=== PATIENT | male | born 1990 | race Caucasian/White ===

== ENCOUNTER 2019-10-17 11:21 | Emergency (ER) | payer OTHER, SELFPAY ==
[2019-10-17 11:27] VITALS: BP 153/71; PULSE 86; RESP 18; TEMP 36.8; O2SAT 98
--- NOTE | 2019-10-17 11:46 | ED.GENADULT ---
HPI - General Adult General Chief complaint: Upper Respiratory Infection Stated complaint: sore throat and headache Time Seen by Provider: 10/17/19 11:46 Source: patient and RN notes reviewed Mode of arrival: ambulatory Limitations: no limitations History of Present Illness HPI narrative: 29-year-old male presents with complaints of sore throat, bilateral ear pain, fever, and intermittent headache (not the worst of his life) for the past 2-3 days. OTC medication (last on 10/16/19 @ 20:30) with some relief. Low grade fever of 100.2F, orally without chills. No high fevers, drooling, neck or throat swelling. Pain is bilateral. Hurts to swallow. Exacerbation factors consist of eating and drinking. No rhinorrhea or nasal congestion. No voice change. No diarrhea, nausea, vomiting, or abdominal pain. Tolerating liquids well. Denies chills, dyspnea, difficulty swallowing, jaw pain, dental pain, facial pain, foreign body sensation, and rash. Remains active. The patient reports they have not been diagnosed with COVID-19. The patient reports they are not waiting for the results of a COVID-19 lab test. The patient reports they do not have fever, chills, weakness, fatigue, myalgia, or facial swelling. The patient reports they do not have a new or worsening cough or shortness of breath. Denies chest pain. The patient reports they do not have any rhinorrhea, congestion, sore throat, nausea, vomiting, abdominal pain, and diarrhea. Tolerating po intake well. Denies recent traveling. Denies concerns for COVID-19 or exposures been home since [id number] order except for essential household needs, working, and return home. At this time, patient is not suspected of having COVID-19. Complaints of intermittent chest pain for the past 8-9 months. Random pinching feeling. No treatment. No exacerbating factors. Denies diaphoresis or radiating pain. Maternal grandfather history of [place] X4 otherwise no other family history of heart disease and no family history of sudden . Denies fever or chills. Denies nausea, vomiting, diarrhea, or abdominal pain. Denies leg swelling, long car rides, hisorty of DVT, PE, LE edema, or dizziness. Some parts of this dictation were generated by voice recognition software and may contain typographical and/or grammatical inaccuracies. Related Data Allergies Allergy/AdvReac Type Severity Reaction Status Date / Time No Known Allergies Allergy Verified 10/17/19 11:39 Review of Systems Review of Systems: Narrative: CONSTITUTIONAL: Denies fever, chills, sweats. EYES: Denies visual changes, redness, discharge. ENT: Denies rhinorrhea, congestion. Complains of bilateral otalgia, sore throat. CARDIOVASCULAR: Denies palpitations, edema. Complains of intermittent chest pain. RESPIRATORY: Denies dyspnea, wheezing. Complains of cough. GASTROINTESTINAL: Denies abdominal pain, nausea, vomiting, diarrhea. GENITOURINARY: Denies dysuria, hematuria, abnormal discharge. SKIN: Denies rash or itching. MUSCULOSKELETAL: Denies acute back pain, joint pain, or myalgia. NEUROLOGIC: Denies numbness or focal weakness. PSYCHIATRIC: Denies anxiety or depression. Complains of intermittent KHAN. All systems reviewed & are unremarkable except as noted in HPI and below. FORMERLY [facility], [facility] Past Medical History Medical History (Updated 10/17/19 @ 13:18 by VALENTIN Arita) Asthma exercise induced Hypertension Surgical History Surgical History (Updated 10/17/19 @ 13:18 by VALENTIN Arita) No significant past surgical history Family History Family History (Updated 10/17/19 @ 13:20 by VALENTIN Arita) Father Alive and well Mother COPD (chronic obstructive pulmonary disease) Grandparent Diabetes mellitus Grandparent Heart disease Lung cancer Social History Social History (Updated 10/17/19 @ 13:21 by VALENTIN Arita) Smoking status: Former smoker Tobacco type: cigarettes Additional smo
--- NOTE | 2019-10-17 11:58 | ECG_ITS ---
Measurements Intervals [place] Rate: 74 P: 30 HI: 150 QRS: 40 QRSD: 83 T: 56 QT: 363 QTc: 403 Interpretive Statements SINUS RHYTHM BASELINE ARTIFACT- II, III, AVF, V6 NORMAL ECG Electronically Signed On 10-17-2019 12:50:44 CDT by Zeyad Goode D.O.
== END 2019-10-17 12:15 | disposition home or self-care (01) ==
PROVIDERS: Emergency Provider Nurse Practitioner Family
DX: J02.9 Acute pharyngitis, unspecified (principal); J45.990 Exercise induced bronchospasm; I10 Essential (primary) hypertension
CPT/HCPCS: 87081; 87804; 87880; 93005; 99213; G0463

== ENCOUNTER 2020-08-04 09:25 | Emergency (ER) | payer OTHER, SELFPAY ==
--- NOTE | ~2020-08-04 | US_ITS ---
EXAMINATION: US venous doppler LE RT DATE: 08/04/2020 09:57 INDICATION: Right lower limb pain. TECHNIQUE: Grayscale ultrasound images without and with compression and Doppler ultrasound images of the right lower extremity veins were obtained. COMPARISON: None. FINDINGS: The visualized portions of right common femoral vein, profunda (deep) femoral vein, femoral vein, pop liteal vein, peroneal veins, posterior tibial veins, and greater saphenous vein outflow are patent. IMPRESSION: 1. No deep venous thrombosis. Reviewed, dictated and finalized at location A.
[2020-08-04 09:33] VITALS: BP 180/99; PULSE 96; RESP 16; TEMP 36.5; O2SAT 96
--- NOTE | 2020-08-04 09:49 | PC.NURSE ---
Pt taken to u/s at this time.
[2020-08-04] MEDS: IBUPROFEN 600 MG TABLET PO (09:54)
--- NOTE | 2020-08-04 10:14 | ED.GENADULT ---
HPI - General Adult General Chief complaint: Extremity Injury, Lower Stated complaint: right foot injury Time Seen by Provider: 08/04/20 09:26 Source: RN notes reviewed History of Present Illness HPI narrative: Patient presents emergency department from home for right calf pain. Patient states he was playing soccer last night states he was standing when he felt a sudden pop in his right lower calf that radiated into his right Achilles region. States he is had pain since that time as well as difficulty walking he denies any direct trauma or injury. He denies any direct pain to the knee or to the ankle denies any fevers or chills numbness or tingling or any other symptoms Related Data Allergies Allergy/AdvReac Type Severity Reaction Status Date / Time No Known Allergies Allergy Verified 08/04/20 09:36 Review of Systems Review of Systems: Narrative: Gen.: Denies fevers or chills Musculoskeletal: See HPI Neuro: Denies numbness, tingling, weakness Skin: Denies rash Endo: Denies DM PMFSH Past Medical History Medical History Asthma exercise induced Hypertension Surgical History Surgical History (Updated 10/17/19 @ 13:18 by VALENTIN Arita) No significant past surgical history Family History Family History (Updated 10/17/19 @ 13:20 by VALENTIN Arita) Father Alive and well Mother COPD (chronic obstructive pulmonary disease) Grandparent Diabetes mellitus Grandparent Heart disease Lung cancer Social History Social History Smoking status: Former smoker Tobacco type: cigarettes Additional smoking assessment comments: Light tobacco smoker for 1 year Alcohol intake: current Substance use: current Substance use type: marijuana Gender identity (if verbalized by the patient): Male Exam Narrative: Exam Narrative: APPEARANCE: No acute distress, nontoxic, resting in bed Eyes: EOMI HEENT: Normocephalic, atraumatic, RESPIRATORY: No respiratory distress MUSCULOSKELETAl: The right posterior calf is tender to palpation with mild swelling and no ecchymosis there is no tenderness of the knee or ankle with full range of motion of both dorsalis pedis pulse 2+ neurovascular intact with Barker test the patient does have some movement of the right foot however that is less than when compared to the left NEURO: Awake and alert. Following commands, speech normal, no focal deficits SKIN:: Warm, dry. Normal Color no rash or lesions Course Course Emergency Course: Discussed with Dr. Jj presentation work-up agrees with plan for discharge recommends patient placed in posterior short leg splint and crutches with follow-up as Discussed with patient results of workup and diagnosis. Discussed need for follow-up with primary care, proper use of medication, and reasons to return to the emergency department. Patient understands and agrees to current treatment plan Vital Signs Vital signs: Vital Signs Temperature 97.7 F 08/04/20 09:33 Pulse Rate 96 08/04/20 09:33 Respiratory Rate 16 08/04/20 09:33 Blood Pressure 180/99 H 08/04/20 09:33 Pulse Oximetry 96 08/04/20 09:33 Temperature 97.7 F 08/04/20 09:33 Pulse Rate 96 08/04/20 09:33 Respiratory Rate 16 08/04/20 09:33 Blood Pressure 180/99 H 08/04/20 09:33 Pulse Oximetry 96 08/04/20 09:33 Medical Decision Making MDM Narrative Medical decision making narrative: Patient with nontraumatic injury to the right calf and Achilles. With Barker test less movement in the compared to others but with movement suspect either calf strain versus partial Achilles tear will place in posterior splint with follow-up as an outpatient Vital Signs Vital Signs: Vital Signs Temperature 97.7 F 08/04/20 09:33 Pulse Rate 96 08/04/20 09:33 Respiratory Rate 16 08/04/20 09:33 Blood Pressure 180/99 H
[2020-08-04 10:38] VITALS: BP 154/95; PULSE 82; RESP 18; O2SAT 97
== END 2020-08-04 10:42 | disposition home or self-care (01) ==
PROVIDERS: Emergency Provider Emergency Medicine; PCP Nurse Practitioner Family
DX: S86.911A Strain of unspecified muscle(s) and tendon(s) at lower leg level, right leg, initial encounter (principal); J45.909 Unspecified asthma, uncomplicated; I10 Essential (primary) hypertension; Z87.891 Personal history of nicotine dependence; Y93.66 Activity, soccer; X58.XXXA Exposure to other specified factors, initial encounter
CPT/HCPCS: 29515; 93971; 99284; A9270

== ENCOUNTER 2024-01-10 14:57 | Emergency (ER) | payer OTHER, SELFPAY ==
[2024-01-10 15:05] VITALS: BP 152/71; PULSE 80; RESP 20; TEMP 36.7; O2SAT 100
[2024-01-10 15:18] VITALS: BP 152/71; PULSE 80; RESP 20; TEMP 36.7; O2SAT 100
--- NOTE | 2024-01-10 15:26 | ED.URI ---
HPI - URI/Sore Throat General Chief Complaint: Upper Respiratory Infection Stated Complaint: sneezing/headache/throat History of Present Illness HPI Narrative: Patient presents events with sore throat Related Data Home Medications Medication Instructions Recorded Confirmed No Home Medications 01/10/24 01/10/24 Allergies Allergy/AdvReac Type Severity Reaction Status Date / Time No Known Allergies Allergy Verified 01/10/24 15:18 Review of Systems Review of Systems: CONSTITUTIONAL: Denies chills, or sweats. Reports fever and generalized body aches EYES: Denies visual changes, redness, or discharge. ENT: Denies otalgia. Reports nasal congestion runny nose and sore throat CARDIOVASCULAR: Denies chest pain, palpitations, or edema. RESPIRATORY: Denies dyspnea. Reports occasional cough GASTROINTESTINAL: Denies abdominal pain, nausea, vomiting, or diarrhea. GENITOURINARY: Denies dysuria or hematuria. SKIN: Denies rash or itching. MUSCULOSKELETAL: Denies back pain, joint pain, or myalgia. Reports generalized body aches NEUROLOGIC: Denies headache, numbness, or weakness. PSYCHIATRIC: Denies anxiety or depression. PMFSH Past Medical History Medical History Asthma exercise induced Hypertension Surgical History Surgical History (Updated 10/17/19 @ 13:18 by VALENTIN Arita) No significant past surgical history Family History Family History (Updated 10/17/19 @ 13:20 by VALENTIN Arita) Father Alive and well Mother COPD (chronic obstructive pulmonary disease) Grandparent Diabetes mellitus Grandparent Heart disease Lung cancer Social History Social History Smoking status: Former smoker Tobacco type: cigarettes Additional smoking assessment comments: Light tobacco smoker for 1 year Alcohol intake: current Substance use: current Substance use type: marijuana Living arrangements: with family Occupation/Education: occupation Gender identity (if verbalized by the patient): Male Comments At time of signature, agree with nursing past medical, surgical, social and family history. There is no relevant family history pertinent to the presenting complaint Exam Narrative: The patient is a well-developed, well-nourished in no acute distress. SKIN: Skin is warm and dry without erythema, swelling or exudate. There is good turgor. No tenting. HEAD: Atraumatic. Normocephalic. No temporal or scalp tenderness. EYES: Moist and bright. Sclera and conjunctivae normal. No discharge. PERRLA. Extraocular motions intact. Gross visual acuity intact. EARS: Pinna is normal shape and contour. Clear external auditory canals. TM pearly [place] with good cone of light, no erythema or suppuration. Bilateral cerumen noted no gross hearing deficit. NOSE: pink, moist mucosa with good air movement. Clear rhinorrhea without nasal flaring. Septum midline. Mouth: moist mucous membranes. THROAT; mild erythema noted to posterior oropharynx with moderate postnasal drainage. Without exudate or ulceration.. Uvula midline. Normal movement of soft palate. NECK: Supple and nontender with full range of motion without discomfort. No meningeal signs. LUNGS: Equal and bilateral breath sounds without wheezes, rales or rhonchi. CHEST: The chest wall is without retractions or use of accessory muscles. HEART: Has a regular rate and rhythm without murmur, gallops, click or rub. ABDOMEN: Soft, nontender with positive active bowel sounds. No rebound tenderness. EXTREMITIES: Without cyanosis, clubbing or edema. Equal 2+ distal pulses and 2 second capillary refill noted. NEUROLOGIC: alert, active, . The patient moves all extremities with normal muscle strength. Normal muscle tone is noted. Normal coordination is noted. NO focal neurological findings noted. Course Course Level of Care: [facility]
[2024-01-10 15:29] LABS: EDSTREPNEGPOS1 Negative
== END 2024-01-10 15:30 | disposition home or self-care (01) ==
PROVIDERS: Emergency Provider Nurse Practitioner Family
DX: J02.9 Acute pharyngitis, unspecified (principal); Z87.891 Personal history of nicotine dependence; F12.90 Cannabis use, unspecified, uncomplicated; I10 Essential (primary) hypertension; J45.990 Exercise induced bronchospasm
CPT/HCPCS: 87081; 87880; 99213; G0463